=== PATIENT | female | born 1980 ===

== ENCOUNTER 2017-03-16 09:13 | Emergency (ER) | payer MEDICARE ==
[2017-03-16] MEDS ORDERED: Sodium Chloride 0.9% 1,000 ML IV STA (09:36)
--- NOTE | 2017-03-16 09:46 | ED PDOC ---
HPI: Abdomen Time Seen by Provider: 03/16/17 09:20 Chief Complaint (Nursing): Abdominal Pain Chief Complaint (Provider): abdominal pain History/Exam Limitations: no limitations Onset/Duration Of Symptoms: Days (5), Gradual Current Symptoms Are (Timing): Still Present Severity: Moderate Location Of Pain/Discomfort: LLQ, Periumbilical Quality Of Discomfort: Sharp Associated Symptoms: Loss Of Appetite, Constipation, Urinary Symptoms. denies: Nausea, Vomiting, Diarrhea Exacerbating Factors: None Alleviating Factors: None Last Bowel Movement: Yesterday Additional Complaint(s): 36yo female hx hodgkins lymphoma s/p bone marrow transplant 7+ years ago now presents c/o central and left lower abd pain associated with change in bowel habits (constipation) and urinary frequency. Denies fever, vomiting, back pain, headache or body aches. Abnormal Vaginal Bleeding: No Last Menstral Period: unknown- irregular; 1 prior Past Medical History Reviewed: Historical Data, Nursing Documentation, Vital Signs Vital Signs: Last Vital Signs Temp 98 F 03/16/17 12:16 Pulse 60 03/16/17 12:16 Resp 18 03/16/17 12:16 BP 120/72 03/16/17 12:16 Pulse Ox 99 03/16/17 12:16 - Medical History PMH: Gall Bladder Disease, Osteoporosis Other PMH: hodgkins lymphoma s/p treatment - Surgical History Surgical History: Appendectomy, Cholecystectomy, Other surgeries: b/l hip replacement - Family History Family History: States: Unknown Family Hx - Living Arrangements Living Arrangements: With Family - Social History Current smoker - smoking cessation education provided: No - Home Medications Home Medications: Ambulatory Orders Medication Instructions Recorded Bisacodyl [Dulcolax] 10 mg RC BID PRN #10 supp.rect 03/16/17 Docusate [Colace] 100 mg PO BID PRN #14 cap 03/16/17 Magnesium Citrate [Citrate of Mag] 50 ml PO BID PRN #300 bottle 03/16/17 Naproxen [Naprosyn] 500 mg PO BID PRN #14 tablet 03/16/17 Phosphate Enema [Fleet Enema 135 135 ml RC BID PRN #4 nma 03/16/17 Ml] - Allergies Allergies/Adverse Reactions: Allergies Allergy/AdvReac Type Severity Reaction Status Date / Time iodine Allergy SHORTNESS Verified 03/16/17 09:29 OF BREATH Review of Systems Constitutional: Negative for: Fever, Chills, Weakness Cardiovascular: Negative for: Chest Pain, Palpitations Respiratory: Negative for: Cough, Shortness of Breath Gastrointestinal: Positive for: Abdominal Pain, Constipation. Negative for: Nausea, Vomiting, Diarrhea Genitourinary Female: Positive for: Frequency. Negative for: Dysuria Musculoskeletal: Negative for: Neck Pain, Arm Pain, Back Pain, Leg Pain Skin: Negative for: Rash, Lesions, Jaundice Neurological: Negative for: Weakness, Numbness Physical Exam - Reviewed Nursing Documentation Reviewed: Yes Vital Signs Reviewed: Yes - Physical Exam Appears: Positive for: Well, Non-toxic, No Acute Distress Head Exam: Positive for: ATRAUMATIC, NORMAL INSPECTION, NORMOCEPHALIC Skin: Positive for: Normal Color, Warm, DRY Eye Exam: Positive for: EOMI, Normal appearance, PERRL ENT: Positive for: Normal ENT Inspection Neck: Positive for: Normal, Painless ROM Cardiovascular/Chest: Positive for: Regular Rate, Rhythm Respiratory: Positive for: CNT, Normal Breath Sounds Gastrointestinal/Abdominal: Positive for: Bowel Sounds, Soft, Tenderness (mild LLQ and periumbilical tenderness). Negative for: Guarding, Rebound Back: Positive for: Normal Inspection Extremity: Positive for: Normal ROM Neurologic/Psych: Positive for: Alert, Oriented - Laboratory Results Result Diagrams: 03/16/17 09:40 03/16/17 09:40 - ECG O2 Sat by Pulse Oximetry: 98 Medical Decision Making Medical Decision Making: workup initiated for abd pain, constipation in setting of prior surgery and malignancy. Labs, CT abd/pelv and pain medicine initiated, IVF bolus ordered. 11:02 Abd/Pelvis CT FINDINGS: LOWER THORAX: Unremarkable. LIVER: Unremarkable. No gross lesion or ductal dilatation. GALLBLADDER AND BILE DUCTS: Prior cholecystectomy with surgical clips in place. PANCREAS: Unremarkable. No gross lesion or ductal dilatation. SPLEEN: Unremarkable. ADRENALS: Unremarkable. No mass. KIDNEYS AND URETERS: Unremarkable. No hydronephrosis. No solid mass. VASCULATURE: Unremarkable. No aortic aneurysm. BOWEL: Nonspecific prominent submucosal fat from the cecum to the mid transverse colon. Prominent matter retained fecal material. No obstruction. No gross mural thickening. APPENDIX: Prior appendectomy with surgical clips in place. PERITONEUM: Unremarkable. No free fluid. No free air. LYMPH NODES: Unremarkable. No enlarged lymph nodes. BLADDER: Unremarkable. REPRODUCTIVE: Unremarkable. BONES: Bilateral hip arthroplasties. No acute fracture. OTHER FINDINGS: None. IMPRESSION: No urolithiasis or evidence of recently passed genitourinary calculus. Prominent amount of retained fecal material. No acute abdominal pelvic pathology. 12:10 --Patient was offered further medication in the ER but wants to go home. During reassessment abdomen is nontender. Will give trial of several medications for constipation and refer to GI. Disposition - Clinical Impression Clinical Impression: Abdominal pain, Constipation - Disposition Referrals: Javier Frost MD [Staff Provider] - Disposition Time: 12:10 Condition: STABLE Additional Instructions: Drink plenty of fluids. Take stool softeners daily and use laxatives as directed as needed. Return to ER for any worse or new symptoms. Prescriptions: Bisacodyl [Dulcolax] 10 mg RC BID PRN #10 supp.rect PRN Reason: Constipation Docusate [Colace] 100 mg PO BID PRN #14 cap PRN Reason: Constipation Magnesium Citrate [Citrate of Mag] 50 ml PO BID PRN #300 bottle PRN Reason: Constipation Naproxen [Naprosyn] 500 mg PO BID PRN #14 tablet PRN Reason: Pain, Moderate (4-7) Phosphate Enema [Fleet Enema 135 Ml] 135 ml RC BID PRN #4 nma PRN Reason: Constipation Instructions: Constipation (ED), Acute Abdominal Pain (ED) Forms: [employer] (Malay)
[2017-03-16 10:17] LABS: BASO # 0.1 K/uL (0.0-0.2); BASO % 1.1 % (0.0-2.0); EOS # 0.1 K/uL (0.0-0.7); HEMOGLOBIN 11.7 g/dL (12.0-16.0); LYMPH # 2.5 K/uL (1.0-4.3); LYMPH % 55.3 % (20.0-40.0); MEAN CELL VOLUME 85.4 fl (81.0-99.0); MEAN CORPUSCULAR HEMOGLOBIN 28.2 pg (27.0-31.0); MEAN PLATELET VOLUME 7.6 fl (7.2-11.7); MONO # 0.4 K/uL (0.0-0.8); MONO % 9.5 % (0.0-10.0); NEUT # 1.4 K/uL (1.8-7.0); NEUT % 32.1 % (50.0-75.0); NRBC % 0.2 % (0.0-0.0); RBC 4.16 Mil/uL (3.80-5.20); RED CELL DISTRIBUTION WIDTH 15.7 % (11.5-14.5); WHITE BLOOD COUNT 4.5 K/uL (4.8-10.8)
[2017-03-16 10:31] LABS: PARTIAL THROMBOPLASTIN TIME 28.2 Seconds (25.6-37.1); PROTHROMBIN TIME 11.5 Seconds (9.8-13.1)
[2017-03-16 10:37] LABS: ALB/GLOB RATIO 1.2 (1.0-2.1); ALBUMIN 4.3 g/dL (3.5-5.0); ALT/SGPT 23 U/L (9-52); AST/SGOT 26 U/L (14-36); BLOOD UREA NITROGEN 10 mg/dl (7-17); CALCIUM 9.3 mg/dL (8.4-10.2); GFR AFRICAN-AMERICAN > 60; GFR NON-AFRICAN AMERICAN > 60; LIPASE 84 U/L (23-300)
--- NOTE | 2017-03-16 11:04 | CT ---
PROCEDURE: CT Abdomen and Pelvis without intravenous contrast HISTORY: LLQ pain, constipation, hx lymphoma 2009 COMPARISON: None. TECHNIQUE: Contiguous images were obtained from the domes of the diaphragms to the upper thighs without the administration of intravenous contrast. Oral contrast was not administered. Radiation dose: Total exam DLP = 904.3 mGy-cm. This CT exam was performed using one or more of the following dose reduction techniques: Automated exposure control, adjustment of the mA and/or kV according to patient size, and/or use of iterative reconstruction technique. FINDINGS: LOWER THORAX: Unremarkable. LIVER: Unremarkable. No gross lesion or ductal dilatation. GALLBLADDER AND BILE DUCTS: Prior cholecystectomy with surgical clips in place. PANCREAS: Unremarkable. No gross lesion or ductal dilatation. SPLEEN: Unremarkable. ADRENALS: Unremarkable. No mass. KIDNEYS AND URETERS: Unremarkable. No hydronephrosis. No solid mass. VASCULATURE: Unremarkable. No aortic aneurysm. BOWEL: Nonspecific prominent submucosal fat from the cecum to the mid transverse colon. Prominent matter retained fecal material. No obstruction. No gross mural thickening. APPENDIX: Prior appendectomy with surgical clips in place. PERITONEUM: Unremarkable. No free fluid. No free air. LYMPH NODES: Unremarkable. No enlarged lymph nodes. BLADDER: Unremarkable. REPRODUCTIVE: Unremarkable. BONES: Bilateral hip arthroplasties. No acute fracture. OTHER FINDINGS: None. IMPRESSION: No urolithiasis or evidence of recently passed genitourinary calculus. Prominent amount of retained fecal material. No acute abdominal pelvic pathology.
[2017-03-16 12:17] VITALS: BP 120/72; PULSE 60; RESP 18; TEMP 98
[2017-03-16 12:19] VITALS: O2SAT 98
== END 2017-03-16 12:17 | disposition home or self-care (01) ==
LOC: H.ER 09:13
DX: K59.00 Constipation, unspecified (principal); Z85.72 Personal history of non-Hodgkin lymphomas
CPT/HCPCS: 74176; 80053; 81025; 83690; 84702; 85025; 85610; 85730; 96360; 99283; J1885; J7040